=== PATIENT | male | born 2000 | race Caucasian/White ===

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

== ENCOUNTER 2024-04-11 08:53 | Emergency (ER) | payer BC, OTHER ==
--- NOTE | 2024-04-11 09:45 | XR ---
EXAMINATION TYPE: XR finger LT DATE OF EXAM: 04/11/2024 CLINICAL HISTORY: pain TECHNIQUE: Frontal, lateral and oblique images of the left hand are obtained. COMPARISON: None. FINDINGS: There is no acute fracture/dislocation evident. The joint spaces appear within normal limi ts. The overlying soft tissue appears unremarkable. IMPRESSION: There is no acute fracture or dislocation. ICD 10 NO FRACTURE, INITIAL EVALUATION [facility], , 04/11/2024 9:43 AM
--- NOTE | 2024-04-11 10:19 | ED ---
General Adult HPI - General Chief complaint: Extremity Injury, Upper Stated complaint: finger injury Time Seen by Provider: 04/11/24 09:14 Source: patient, RN notes reviewed, old records reviewed Mode of arrival: ambulatory Limitations: no limitations - History of Present Illness Initial comments: Patient is a 23-year-old male who presents emergency department complaining of left ring finger injury. Was playing basketball when he got caught in the net on Wednesday. Has been having pain with movement of the distal joint since that time. The swelling has improved. He is concerned for possible fracture, dislocation, or tendon injury. Presents for further evaluation. No other injuries. Patient does have a finger splint he obtained from a friend and has been using - Related Data Home Medications Medication Instructions Recorded Confirmed Loratadine 10 mg PO DAILY 01/30/19 01/30/19 Previous Rx's Medication Instructions Recorded Ondansetron Odt [Zofran Odt] 4 mg PO Q8HR PRN #10 tab 01/30/19 Cephalexin [Keflex] 500 mg PO BID 3 Days #6 cap 09/22/19 Allergies Allergy/AdvReac Type Severity Reaction Status Date / Time No Known Allergies Allergy Verified 04/11/24 08:59 Review of Systems ROS Statement: Those systems with pertinent positive or pertinent negative responses have been documented in the HPI. Review of Systems: CONST: Denies fever EYES: Denies blurry vision ENT: Denies nasal congestion C/V: Denies Chest pain RESP: Denies shortness of breath GI: Denies abdominal pain : Denies dysuria SKIN: Denies rash. MSK: Endorses left ring finger pain. NEURO: Denies headache ROS Other: All systems not noted in ROS Statement are negative. Past Medical History Past Medical History: No Reported History History of Any Multi-Drug Resistant Organisms: None Reported Past Surgical History: No Surgical Hx Reported Past Psychological History: No Psychological Hx Reported Past Alcohol Use History: None Reported Past Drug Use History: None Reported General Exam - General Exam Comments Initial Comments: General: Appears in no acute distress. HEAD: Normal with no signs of head trauma. EYES: EOMI. ENT: Hearing grossly intact. RESPIRATORY: No respiratory distress. C/V: Regular rate and rhythm. ABD: Abdomen is nondistended. EXT: Decreased range of motion at the left ring finger DIP joint. No obvious deformities. Neurovascular intact. Good range of motion at the other joints of the left finger. SKIN: No rashes or lesions observed on exposed skin. NEURO: Alert and oriented. Limitations: no limitations Course Vital Signs 04/11/24 04/11/24 08:57 10:29 Temperature 97.8 F 97.9 F Pulse Rate 77 75 Respiratory 20 18 Rate Blood Pressure 127/83 125/86 O2 Sat by Pulse 100 100 Oximetry Medical Decision Making - Medical Decision Making Was pt. sent in by a medical professional or institution (, MOODY, LATHE MACHINE OPERATOR, urgent care, hospital, or detention...) When possible be specific @ -No Did you speak to anyone other than the patient for history (EMS, parent, family, police, friend...)? What history was obtained from this source @ -No Did you review nursing and triage notes (agree or disagree)? Why? @ -I reviewed and agree with nursing and triage notes Were old charts reviewed (outside hosp., previous admission, EMS record, old EKG, old radiological studies, urgent care reports/EKG's, detention records)? Report findings @ -No old charts were reviewed Differential Diagnosis (chest pain, altered mental status, abdominal pain women, abdominal pain men, vaginal bleeding, weakness, fever, dyspnea, syncope, headache, dizziness, GI bleed, back pain, seizure, CVA, palpatations, mental health, musculoskeletal)? @ -Differential Musculoskeletal Muscular strain, contusion, ligament sprain, fracture, arthritis, septic arthritis, bursitis, cellulitis, muscle spasm, nerve compression, DVT, arterial occlusion, herpes zoster, electrolyte abnormality, tumor.... This is not meant to be in all inclusive list EKG interpreted by me (3pts min.). @ -None done X-rays interpreted by me (1pt min.). @ -X-ray unremarkable. No obvious fracture or injury. CT interpreted by me (1pt min.). @ -None done U/S interpreted by me (1pt. min.). @ -None done What testing was considered but not performed or refused? (CT, X-rays, U/S, labs)? Why? @ -None What meds were considered but not given or refused? Why? @ -I offered analgesia medications which were declined Did you discuss the management of the patient with other professionals (professionals i.e. , MOODY, LATHE MACHINE OPERATOR, lab, RT, psych nurse, social work manager, melting supervisor, teacher, investigation officer, returned case inspector)? Give summary @ -No Was smoking cessation discussed for >3mins.? @ -No Was critical care preformed (if so, how long)? @ -No Were there social determinants of health that impacted care today? How? (Homelessness, low income, unemployed, alcoholism, drug addiction, transportation, low edu. Level, literacy, decrease access to med. care, [facility], rehab)? @ -No Was there de-escalation of care discussed even if they declined (Discuss DNR or withdrawal of care, Hospice)? DNR status @ -No What co-morbidities impacted this encounter? (DM, HTN, Smoking, COPD, CAD, Cancer, CVA, ARF, Chemo, Hep., AIDS, mental health diagnosis, sleep apnea, morbid obesity)? @ -None Was patient admitted / discharged? Hospital course, mention meds given and route, prescriptions, significant lab abnormalities, going to OR and other pertinent info. @ -Patient is a 23-year-old male who presents with left ring finger injury. X- ray unremarkable. Patient already has a finger splint I recommended he continue using it. Using [id number] analgesia medications, ice, rest. Recommend follow-up with hand surgeon Dr. Estevez if symptoms do not improve. He was in agreement this plan. Concern is for possible sprain or soft tissue injury to the left finger. I instructed the patient to follow up with their PCP in the next 1-3 days. I provided contact information for follow up with hand orthopedics on-call. I explained that the patient should return to the emergency department if they experience any worsening symptoms. Strict return precautions were discussed with the patient. The patient expressed understanding of these instructions. I answered all questions that the patient had. The patient was discharged home in good condition with their prescriptions and follow up information. Undiagnosed new problem with uncertain prognosis? @ -No Drug Therapy requiring intensive monitoring for toxicity (Heparin, Nitro, Insulin, Cardizem)? @ -No Were any procedures done? @ -No Diagnosis/symptom? @ -Left finger sprain Acute, or Chronic, or Acute on Chronic? @ -Acute Uncomplicated (without systemic symptoms) or Complicated (systemic symptoms)? @ -Uncomplicated Side effects of treatment? @ -No Exacerbation, Progression, or Severe Exacerbation? @ -No Poses a threat to life or bodily function? How? (Chest pain, [place], [place], pneumonia, PE, COPD, DKA, ARF, appy, cholecystitis, CVA, Diverticulitis, Homicidal, Suicidal, threat to staff... and all critical care pts) @ -No Disposition Clinical Impression: Sprain of left ring finger Disposition: HOME SELF-CARE Condition: Good Instructions (If sedation given, give patient instructions): Finger Sprain (ED) Is patient prescribed a controlled substance at d/c from ED?: No Referrals: Paola Camarena MD [Primary Care Provider] - 1-2 days Andree Estevez DO [Doctor of Osteopathic Medicine] - 1-2 days Time of Disposition: 10:18
[2024-04-11 10:30] VITALS: BP 125/86; PULSE 75; RESP 18; TEMP 97.9
== END 2024-04-11 10:57 | disposition home or self-care (01) ==
LOC: EC 08:53
CPT/HCPCS: 99283